=== PATIENT | female | born 1945 | race Caucasian/White ===

== ENCOUNTER 2023-11-28 11:55 | Emergency (ER) | payer OTHER, MEDICARE ==
[~2023-11-28] VITALS: Ht 172.7 cm; Wt 64.4 kg
[2023-11-28] MEDS ORDERED: Diphth,Pertuss(Acell),Tet Vac 0.5 ML VIAL IM ONE (12:10)
== END 2023-11-28 14:00 | disposition home or self-care (01) ==
LOC: ER 11:55
DX: S01.81XA Laceration without foreign body of other part of head, initial encounter (principal); S50.811A Abrasion of right forearm, initial encounter; I48.91 Unspecified atrial fibrillation; I50.30 Unspecified diastolic (congestive) heart failure; J44.9 Chronic obstructive pulmonary disease, unspecified; J43.9 Emphysema, unspecified; W01.0XXA Fall on same level from slipping, tripping and stumbling without subsequent striking against object, initial encounter
CPT/HCPCS: 12002; 70450; 90471; 90715; 93005; 93010; 99284-25